=== PATIENT | female | born 1980 | race Hispanic/Latino ===

== ENCOUNTER 2018-01-23 09:22 | Emergency (ER) | payer OTHER ==
[2018-01-23 09:31] VITALS: BP 111/48
--- NOTE | 2018-01-23 11:57 | Emergency Department Report ---
ED Rash HPI - HPI Chief Complaint: Skin Rash Stated Complaint: INSECT BITES Time Seen by Provider: 01/23/18 11:09 Duration: 1 Day Location: Abdomen (rashe to left side of navel), Lower Extremities (rash behind left knee) Suspected Cause: Insect (tic) Rash Symptoms: Yes Myalgias (LLE muscle aches), No Itching, No Facial Swelling, No Tongue/Oral Swelling, No Breathing Difficulties, No Choking Sensation, No Wheezing/Dyspnea, No Peeling, No Blistering, No Fever, No Lightheaded, No Malaise Severity: mild Other History: This is a 37 y.o. female that presents with bulls eye rash to left side of navel on abdomen for 2 days. Patient reports going [place] in [place] . She noticed a tic on stomach and behind left knee Wednesday and removed both. She felt fine until yesterday her left lower leg felt very achy and she noticed a small rash posterior left knee and a bulls eye rash to abdomen on the left side of navel. She checked google and became very concerned she may possibly have lyme disease. Denies nausea/vomiting, chest pain, headache , neck stiffness, and fever. ED Review of Systems ROS: Stated complaint: INSECT BITES Other details as noted in HPI Constitutional: denies: chills, fever Respiratory: denies: cough, shortness of breath, wheezing Cardiovascular: denies: chest pain, palpitations, syncope, paroxysmal nocturnal dyspnea Gastrointestinal: denies: abdominal pain, nausea, vomiting, diarrhea Musculoskeletal: myalgia (LLE muscle aches). denies: back pain, joint swelling , arthralgia Skin: rash (bulls eye rash to left side of navel and rash to posterior left knee ). denies: lesions Neurological: denies: headache, weakness, numbness, paresthesias Psychiatric: denies: anxiety, depression ED Past Medical Hx - Past Medical History Previous Medical History?: Yes Additional medical history: vaginal dleivery x 4 - Surgical History Past Surgical History?: No - Social History Smoking Status: Current Every Day Smoker Substance Use Type: Non Opiate Pain - Medications Home Medications: Home Medications Medication Instructions Recorded Confirmed Last Taken Type Doxycycline Monohydrate 100 mg PO BID 10 Days #20 tablet 01/23/18 Unknown Rx Rash Exam - Exam General: Vital signs noted. No distress. Alert and acting appropriately. HEENT: No Periorbital Edema, No Conjuctival Injection, No Chemosis, No Perioral Edema, No Tongue Edema, No Uvular Edema, No Compromised Airway, No Drooling Lungs: Yes Good Air Exchange (Normal Breath Sounds), No Wheezes, No Ronchi, No Stridor, No Cough, No Labored Respirations, No Retractions, No Use of Accessory Muscles, No Other Abnormal Lung Sounds Heart: Yes Regular, No Murmur Skin: Yes Maculopapular Rash (4 cm macular, circular, bullseye appearance on LUQ of abdomen, 3 cm red macule popliteal region), Yes Erythema, No Urticarial Rash, No Morbilliform rash, No Bulla(e), No Excoriations, No Weeping, No Tenderness, No Edema, No Encrustations, No Other ED Course Vital Signs 01/23/18 09:26 Temperature 97.6 F Pulse Rate 75 Respiratory 18 Rate Blood Pressure 111/48 O2 Sat by Pulse 100 Oximetry ED Medical Decision Making - Lab Data Result diagrams: 01/23/18 12:37 01/23/18 12:37 - Medical Decision Making This is a 37 y.o. female with a bulls eye rash to LUQ of abdomen and left popliteal for 2 days. Patient examined by me. No distress noted. Vitals stable. Obtained CBC, BMP, lyme, ESR, & CRP. Pending lyme results. Physical assessment susceptible of lyme or Kiron. Given doxycycline 100 mg po once in ER. Start doxycycline 100 mg po bid x 10 days. F/U with PCP 24-72 hours. Discussed plan with patient and agreed to plan. Discharged home stable. Critical care attestation.: If time is entered above; I have spent that time in minutes in the direct care of this critically ill patient, excluding procedure time. ED Disposition Clinical Impression: Tick bite of abdomen Qualifiers: Encounter type: initial encounter Qualified Code(s): S30.861A - Insect bite ( nonvenomous) of abdominal wall, initial encounter Tick bite of left knee Qualifiers: Encounter type: sequela Qualified Code(s): S80.262S - Insect bite (nonvenomous) , left knee, sequela Disposition: - TO HOME OR SELFCARE Is pt being admited?: No Does the pt Need Aspirin: No Condition: Stable Instructions: Lyme Disease (ED), Tick Bite (ED) Additional Instructions: Follow up with [facility] in 1 week. Monitor rash daily and return to ER if rash spread and symptoms of body aches increase. Prescriptions: Doxycycline Monohydrate 100 mg PO BID 10 Days #20 tablet Referrals: [facility] [Outside] - 3-5 Days [facility] [Outside] - 3-5 Days [facility] [Outside] - 3-5 Days Time of Disposition: 12:30 Print Language: GIBRALTARIAN
[2018-01-23] MEDS ORDERED: VIBRAMYCIN PO ONE (12:00)
[2018-01-23 13:02] LABS: Hematocrit 43.7 % (30.3-42.9); Hemoglobin 14.3 gm/dl (10.1-14.3); Mean Corpuscular HGB Conc 33 % (30-34); Mean Corpuscular Hemoglobin 29 pg (28-32); Mean Corpuscular Volume 88 fl (79-97); Platelet Count 278 K/mm3 (140-440); Red Blood Count 4.99 M/mm3 (3.65-5.03); Red Cell Distribution Width 13.4 % (13.2-15.2)
[2018-01-23 13:23] LABS: BUN/Creatinine Ratio 22; Blood Urea Nitrogen 13 mg/dL (7-17); Calcium 9.3 mg/dL (8.4-10.2); Erythrocyte Sedimentation Rate 2 mm/Hr (0-20); Hemolysis Index 4
== END 2018-01-23 12:59 | disposition home or self-care (01) ==
LOC: ED 09:22
DX: S30.861A Insect bite (nonvenomous) of abdominal wall, initial encounter (principal); S80.262A Insect bite (nonvenomous), left knee, initial encounter; F17.200 Nicotine dependence, unspecified, uncomplicated; W57.XXXA Bitten or stung by nonvenomous insect and other nonvenomous arthropods, initial encounter; Y93.89 Activity, other specified; Y99.8 Other external cause status; Y92.89 Other specified places as the place of occurrence of the external cause
CPT/HCPCS: 36415; 80048; 85027; 85652; 86140; 87476; 99283